=== PATIENT | female | born 1995 | race Caucasian/White ===

== ENCOUNTER 2018-08-04 15:30 | Emergency (ER) | payer OTHER, MEDICAID ==
[~2018-08-04] VITALS: Ht 167.6 cm; Wt 73.2 kg
[2018-08-04] MEDS ORDERED: AZIT250T PO (16:19)
[2018-08-04] MEDS ORDERED: BENZ-16 PO (16:19)
[2018-08-04 16:25] VITALS: BP 139/89
== END 2018-08-04 16:26 | disposition home or self-care (01) ==
LOC: ER 15:30
DX: J06.9 Acute upper respiratory infection, unspecified (principal); Z79.899 Other long term (current) drug therapy
CPT/HCPCS: 99283